=== PATIENT | male | born 1975 | race Caucasian/White ===

== ENCOUNTER 2019-03-29 09:14 | Outpatient (REF) | payer SELFPAY ==
[2019-03-29 20:44] LABS: Anion Gap 10.4 mmol/L (3-11); BUN 16 mg/dL (7-18); CO2 24.6 mmol/L (21.0-32.0); CREATININE 0.67 mg/dL (0.70-1.30); Calcium 8.9 mg/dL (8.5-10.1); Calculated LDL 131 mg/dL; Chloride 106 mmol/L (98-107); Cholesterol 190 mg/dL (50-200); Glucose 97 mg/dL (70-100); HDL Cholesterol 46 mg/dL (40-60); Potassium 4.1 mmol/L (3.5-5.1); Sodium 141 mmol/L (136-145); TSH (W/Ref FT4) 0.66 uIU/mL (0.358-3.74); Triglyceride 68 mg/dL (30-150)
== END 2019-03-29 09:34 ==
LOC: NCHCN 09:14
PROVIDERS: PCP Specialist/Technologist Athletic Trainer; Visit Provider Specialist/Technologist Athletic Trainer
DX: Z00.00 Encounter for general adult medical examination without abnormal findings (principal); Z13.29 Encounter for screening for other suspected endocrine disorder; Z13.220 Encounter for screening for lipoid disorders; Z13.228 Encounter for screening for other metabolic disorders
CPT/HCPCS: 80048; 80061; 83721; 84443

== ENCOUNTER 2020-07-27 16:51 | Outpatient (REF) | payer OTHER, SELFPAY ==
[2020-07-30 17:40] LABS: Patient Race White; SARS-CoV-2 RNA Undetected (Undetected); SARS-CoV-2 Specimen Source Nasal
== END 2020-07-27 17:11 ==
LOC: NCHCN 16:51
PROVIDERS: PCP Specialist/Technologist Athletic Trainer; Visit Provider Physician Assistant Medical
DX: Z20.828 Contact with and (suspected) exposure to other viral communicable diseases (principal)
CPT/HCPCS: U0003

== ENCOUNTER 2022-06-20 13:23 | Outpatient (REF) | payer BC, SELFPAY ==
[2022-06-20 18:50] LABS: ALT 41 U/L (16-63); AST 18 U/L (15-37); Albumin 4.2 g/dL (3.4-5.0); Alkaline Phosphatase 81 U/L (46-116); Anion Gap 6.5 mmol/L (3-11); BUN 20 mg/dL (7-18); Bilirubin, Total 0.8 mg/dL (0.2-1.0); CO2 28.5 mmol/L (21.0-32.0); CREATININE 0.8 mg/dL (0.70-1.30); Calcium 9.3 mg/dL (8.5-10.1); Chloride 104 mmol/L (98-107); Estimated GFR 110.53 (mL/min/1.73m2); Glucose 88 mg/dL (74-106); Potassium 4.5 mmol/L (3.5-5.1); Sodium 139 mmol/L (136-145); TSH (W/Ref FT4) 0.36 uIU/mL (0.36-3.74); Total Protein 7.4 g/dL (6.4-8.2)
[2022-06-20 19:22] LABS: Calculated LDL 111 mg/dL (<100); Cholesterol 195 mg/dL (<200); HDL Cholesterol 68 mg/dL (40-60); Triglyceride 83 mg/dL (<150)
[2022-06-21 21:14] LABS: FREE T4 0.96 ng/dL (0.76-1.46)
== END 2022-06-20 13:24 | disposition home or self-care (01) ==
LOC: NCHCN 13:23
PROVIDERS: PCP Specialist/Technologist Athletic Trainer; Visit Provider Nurse Practitioner Family
DX: R94.6 Abnormal results of thyroid function studies (principal); Z00.00 Encounter for general adult medical examination without abnormal findings
CPT/HCPCS: 80053; 80061; 84439; 84443

== ENCOUNTER 2022-07-06 14:36 | Emergency (ER) | payer BC, SELFPAY ==
[2022-07-06] VITALS (30 sets, daily range): BP systolic 112–129; BP diastolic 61–73; PULSE 43–80; RESP 12–22; TEMP 36.8; O2SAT 93–99
--- NOTE | 2022-07-06 14:45 | RT.EKG_ITS ---
APPROVED REPORT Exam: Resting ECG Reason for Exam: CHEST PAIN Patient Location: E HR:71 bpm ECG Measurements Heart Rate 71 AXIS LA 169 P 61 QRSd 93 QRS 57 QT 349 T 47 QTc 379 Conclusion Sinus rhythm...normal P axis, V-rate 60- 99 Probable left atrial enlargement...P >50mS, <-0.10mV V1 Probable lateral infarct, old...Q>35mS, abnormal ST-T, V5-6 I aVL. Sinus. Normal axis. Q waves lateral leads. No STEMI. I have reviewed and interpreted ECG and agree with software generated interpretation.
--- NOTE | 2022-07-06 15:00 | DI.RAD_ITS ---
Exam(s) XR CHEST 2V PA LATERAL EXAM: XR CHEST 2V PA LATERAL CLINICAL HISTORY: chest pain, r/o acute disease TECHNIQUE: 2D digital imaging was performed. COMPARISON: No exams were available for comparison FINDINGS: The heart is not enlarged. The lungs are clear and well expanded. No pleural effusion seen. Mediastin al contours appear intact. IMPRESSION: Normal chest. RADIATION DOSE DELIVERED: Total DLP
--- NOTE | 2022-07-06 15:16 | ED.GENADUL_ITS ---
Discharge Plan Disposition Patient Disposition: HOME Condition: Improving Discharge Details Clinical Impression: Chest pain Primary Care Provider: Latosha Owen ED Provider: Henrietta Oneal Discharge Instructions Instructions: Chest Pain (ED) Additional Instructions: Your blood tests, EKG and imaging today are reassuring and show no evidence of acute concerning findings. An outpatient stress test have been ordered. You will be contacted by the radiology department for scheduling of this test. You have been placed on care management's list to arrange for a follow-up appointment with your primary care doctor within the next week for re-eval uation. Return immediately to the emergency department if you develop any worsening or new concerning symptoms. Discharge Data Discharge Date/Time-TO BE ENTERED AT DEPARTURE: 07/06/22 19:58 Discharge Physician: Henrietta Oneal Medical Decision Making 1500 -- 46-year-old male presents with a 2-hour episode of right cutting the aching chest pain that awoke him from sleep last night and anterior chest tightness throughout the day today. Denies any other associated symptoms. Diagnosed with COVID 3 weeks ago. 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 He states he drank 2 drinks yesterday. EKG notes a rate of 71, sinus, Q waves in lateral leads, no STEMI and nondiagnostic. His vitals are within normal limits. He appears mildly anxious but otherwise nontoxic. His chest is normal to inspection and nontender. He has no lower extremity edema. Differential diagnosis includes GERD, peptic ulcer disease, esophagitis, anxiety, muscle strain. Also consider PE. History and presentation does not appear consistent with ACS or dissection. Will obtain screening labs, D-dimer, chest x-ray and give a dose of IV Pepcid and Toradol and reassess. 1700 --labs and imaging reviewed. White blood cell count 11.55. Potassium 3.4. Troponin negative. Chest x-ray negative. D-dimer needed to be redrawn. Patient reassessed and still complaining of anterior chest tightness. Patient drove himself to the emergency department. Will give a dose of Carafate and GI cocktail. 193 -- repeat troponin negative. Repeat EKG notes a rate of 53, sinus, left ventricular hypertrophy, peaked T waves in anterior leads but no evidence of ischemia. Patient remains pain-free at this time. He has had occasional dips of heart rate into the low 50s but then increases back up to the 70s. Heart rate now 50s to 60s. Patient feels comfortable going home. Disposition decision made weighing the risks and benefits of hospitalization versus outpatient treatment, the risk for further decompensation, and the patient's wishes. An order for an outpatient stress test has been placed. He was placed on care management list to arrange for a follow-up appointment with his primary care doctor for reevaluation this week. Discussed considering obtaining an echocardiogram and follow-up with cardiology if indicated. Usual and customary return precautions given prior to discharge. Medical Records Medical records reviewed: Yes I reviewed the patient's medical records. Imaging Data Radiologic Study: Radiologist's impression: XR CHEST 2V PA ? LATERAL CLINICAL HISTORY:? chest pain, r/o acute disease TECHNIQUE:? 2D digital imaging was performed. COMPARISON:? No exams were available for comparison FINDINGS: The heart is not enlarged. The lungs are clear and well expanded. No pleural effusion seen. Mediastinal contours appear intact. IMPRESSION: Normal chest. Lab Data Lab results reviewed: Yes I reviewed the patient's lab results. Labs: Laboratory Tests Range/Units 07/06/22 07/06/22 07/06/22 15:14 15:14 16:50 WBC (4.4-10.8) 10^3/uL 11.55 H RBC (4.36-5.78) 10^6/uL 4.85 Hgb (13.5-17.5) g/dL 14.8 Hct (40.0-50.0) % 43.9 MCV (80-95) fL 91 MCH (27.0-33.0) pg 30.5 MCHC (32.0-36.0) % 33.7 RDW (11.8-14.1) % 12.7 Plt Count (130-400) 10^3/uL 241 MPV (8.0-11.0) fL 11.6 H Immature Gran % 0.3 Neutrophils % 77.4 Lymphocytes % 13.2 Monocytes % 7.1 Eosinophils % 1.7 Basophils % 0.3 Nucleated RBC % (0.0-0.3) % 0.0 Absolute Neutrophils (1.2-6.7) 10^3/uL 8.94 H Absolute Lymphocytes (1.2-3.4) 10^3/uL 1.52 Absolute Monocytes (0.1-0.8) 10^3/uL 0.82 H Absolute Eosinophils (0.0-0.7) 10^3/uL 0.20 Absolute Basophils (0.0-0.2) 10^3/uL 0.03 D-Dimer (<500) ng/mlFEU 336 Sodium (136-145) mmol/L 140 Potassium (3.5-5.1) mmol/L 3.4 L Chloride (98-107) mmol/L 105 Carbon Dioxide (21.0-32.0) mmol/L 28.2 Anion Gap (3-11) mmol/L 6.8 BUN (7-18) mg/dL 14 Creatinine (0.70-1.30) mg/dL 0.8 Est GFR (CKD-EPI 2020) (mL/min/1.73m2) 110.53 Glucose (74-106) mg/dL 111 H Calcium (8.5-10.1) mg/dL 9.1 Magnesium (1.8-2.4) mg/dL 1.9 Total Bilirubin (0.2-1.0) mg/dL 0.4 AST (15-37) U/L 16 ALT (16-63) U/L 29 Alkaline Phosphatase (46-116) U/L 98 Troponin I (<or=60) ng/L < 50 Total Protein (6.4-8.2) g/dL 6.9 Albumin (3.4-5.0) g/dL 3.9 Range/Units 07/06/22 17:45 WBC (4.4-10.8) 10^3/uL RBC (4.36-5.78) 10^6/uL Hgb (13.5-17.5) g/dL Hct (40.0-50.0) % MCV (80-95) fL MCH (27.0-33.0) pg MCHC (32.0-36.0) % RDW (11.8-14.1) % Plt Count (130-400) 10^3/uL MPV (8.0-11.0) fL Immature Gran % Neutrophils % Lymphocytes % Monocytes % Eosinophils % Basophils % Nucleated RBC % (0.0-0.3) % Absolute Neutrophils (1.2-6.7) 10^3/uL Absolute Lymphocytes (1.2-3.4) 10^3/uL Absolute Monocytes (0.1-0.8) 10^3/uL Absolute Eosinophils (0.0-0.7) 10^3/uL Absolute Basophils (0.0-0.2) 10^3/uL D-Dimer (<500) ng/mlFEU Sodium (136-145) mmol/L Potassium (3.5-5.1) mmol/L Chloride (98-107) mmol/L Carbon Dioxide (21.0-32.0) mmol/L Anion Gap (3-11) mmol/L BUN (7-18) mg/dL Creatinine (0.70-1.30) mg/dL Est GFR (CKD-EPI 2020) (mL/min/1.73m2) Glucose (74-106) mg/dL Calcium (8.5-10.1) mg/dL Magnesium (1.8-2.4) mg/dL Total Bilirubin (0.2-1.0) mg/dL AST (15-37) U/L ALT (16-63) U/L Alkaline Phosphatase (46-116) U/L Troponin I (<or=60) ng/L < 50 Total Protein (6.4-8.2) g/dL Albumin (3.4-5.0) g/dL ECG Data Attestation: I personally reviewed and interpreted this ECG (s) as follows: Interpretation: #1 -- Rate of 71, sinus, normal axis, Q waves in V4 through V6. No old EKG to compare. No STEMI. #2 -- Rate of 53, sinus, normal axis, peaked T waves in anterolateral leads, LVH, no signs of ischemia or stemi. HPI General Mode of arrival: ambulatory . Date/Time Provider Initiated Documentation: 07/06/22 14:48 . Limitations to Documentation: no limitations . Information obtained by: patient . HPI Narrative: Patient is a 46-year-old male who presents with a 2-hour episode of right-sided aching chest pain that awoke him from sleep last night and then chest tightness anteriorly throughout the day today. Patient states he felt fine when he went to bed last night. He states he awoke at 2 AM with right-sided deep aching chest pain which lasted 2 hours and then resolved on its own. He states he was able to sleep and then awoke this morning and noticed anterior chest tightness. He states the pain is occasionally worse with deep breaths. He states he has been able to eat normally and denies any fever, cough, vomiting, shortness of breath, or dizziness. He denies any injury. 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 He states he drinks between 1 and 4 alcoholic drinks daily. He drank 2 alcoholic drinks yesterday. He states his father had 2 surgeries for cardiac bypass but was a heavy smoker. Patient states he had COVID last year and contracted it again 3 weeks ago. He states his symptoms a few weeks ago were mainly low-grade fever and mild headache which she feels completely resolved. Related Data Allergies Allergy/AdvReac Type Severity Reaction Status Date / Time No Known Allergies Allergy Unverified 07/06/22 14:42 General Stated Complaint: Chest Pain SAVANNA: 2 Review of Systems All systems reviewed & are unremarkable except as noted in HPI and below Constitutional Constitutional: Reports as per HPI, Denies chills and Denies fever(s) Eyes Eyes: Denies blurry vision ENT Ears, Nose, Mouth, and Throat: Denies dizziness, Denies sore throat and Denies throat swelling Cardiovascular Cardiovascular: Reports chest pain and Denies dyspnea Respiratory Respiratory: Denies cough and Denies dyspnea Gastrointestinal Gastrointestinal: Denies abdominal pain, Denies diarrhea and Denies vomiting Genitourinary Genitourinary: Denies hematuria and Denies dysuria Musculoskeletal Musculoskeletal: Denies back pain and Denies numbness Integumentary/Breasts Skin/Breast: Denies lesions and Denies rash Neurologic Neurologic: Denies dizziness, Denies localized weakness and Denies numbness Allergic/Immunologic Allergic/Immunologic: Denies throat swelling PFSH All Active Problems (Updated 07/06/22 @ 19:47 by Henrietta Oneal DO) Chest pain (Acute) Medical History (Updated 07/06/22 @ 19:47 by Henrietta Oneal DO) No significant past medical history Surgical History (Updated 07/06/22 @ 15:18 by Henrietta Oneal DO) No significant past surgical history Social History Smoking/Tobacco Use Status: Former Tobacco Use Smoking risk assessment performed?: Yes Alcohol Intake: current Alcohol Intake frequency: 0-2 drinks per day Alcohol type: beer Drug use: Never Substance use type: does not use Do you feel safe at home: Yes Do you feel safe in your relationship?: Yes Exam Const General: cooperative, no acute distress and anxious Orientation: alert, awake and oriented x3 HENMT Head: normal to inspection Face and sinus: normal facial exam Eyes General: appearance normal, both eyes and all related structures EOM: EOM intact bilaterally Neck Neck: normal visual inspection and No submandibular swelling Lymphatic: no lymphadenopathy noted Chest Chest: normal inspection of the chest, normal palpation of entire chest wall and no tenderness Resp Effort & Inspection: normal respiratory effort and able to speak in complete sentences Auscultation: clear to auscultation bilaterally Cardio Rate: regular rate Rhythm: regular rhythm GI Inspection: normal to inspection Palpation: soft, not firm, not rigid and nontender Auscultation: normal bowel sounds Back/Spine/Pelvis Thoracic/Lumbar Spine: thoracic and lumbar spine normal to inspection Pelvis: no pain with anterior-posterior compression Skin General skin exam: no rashes or lesions noted Neuro General: patient alert, patient awake and patient oriented x3 Cognition: normal cognition Speech: speech normal Motor: muscle tone normal throughout Sensory Exam: no sensory deficits noted Extrem General: normal to inspection, full ROM, capillary refill normal, no calf tenderness bilaterally and no edema Psych Appearance: grossly normal Mental Status: mental status grossly normal Speech and Movement: speech and movement normal Affect: normal affect Course Vital Signs Vital signs: Vital Signs Temperature 98.3 F 07/06/22 14:39 Pulse 80 07/06/22 14:39 Respiratory Rate 17 07/06/22 14:39 Blood Pressure 129/68 07/06/22 14:39 Pulse Oximetry 99 07/06/22 14:39 Temperature 98.3 F 07/06/22 14:39 Temperature Source Oral 07/06/22 14:39 Pulse 80 07/06/22 14:39 Respiratory Rate 17 07/06/22 14:39 Respiratory Effort 07/06/22 14:48 Respiratory Depth Normal 07/06/22 14:48 Respiratory Pattern Normal 07/06/22 14:48 Blood Pressure 129/68 07/06/22 14:39 Blood Pressure Position Sitting 07/06/22 14:39 Pulse Oximetry 99 07/06/22 14:39 Oxygen Delivery Method Room Air 07/06/22 14:39 Oxygen Flow Rate 0 07/06/22 14:39 Pain Level 2 07/06/22 14:39
[2022-07-06 15:27] LABS: Abs Immature Grans 0.04 10^3/uL (0.0-0.06); Absolute Basophil Count 0.03 10^3/uL (0.0-0.2); Absolute Lymphocyte Count 1.52 10^3/uL (1.2-3.4); Absolute Monocyte Count 0.82 10^3/uL (0.1-0.8); Absolute Neutrophil Count 8.94 10^3/uL (1.2-6.7); Basophils % 0.3; Eosinophils % 1.7; HCT 43.9 % (40.0-50.0); HGB 14.8 g/dL (13.5-17.5); Immature Grans % 0.3; Lymphocytes % 13.2; MCH 30.5 pg (27.0-33.0); MCHC 33.7 % (32.0-36.0); MCV 91 fL (80-95); MPV 11.6 fL (8.0-11.0); Monocytes % 7.1; Neutrophils % 77.4; Platelet Count 241 10^3/uL (130-400); RBC 4.85 10^6/uL (4.36-5.78); RDW 12.7 % (11.8-14.1); RDW-SD 41.6 fL; WBC 11.55 10^3/uL (4.4-10.8)
[2022-07-06 15:48] LABS: ALT 29 U/L (16-63); AST 16 U/L (15-37); Albumin 3.9 g/dL (3.4-5.0); Alkaline Phosphatase 98 U/L (46-116); Anion Gap 6.8 mmol/L (3-11); BUN 14 mg/dL (7-18); Bilirubin, Total 0.4 mg/dL (0.2-1.0); CO2 28.2 mmol/L (21.0-32.0); CREATININE 0.8 mg/dL (0.70-1.30); Calcium 9.1 mg/dL (8.5-10.1); Chloride 105 mmol/L (98-107); Estimated GFR 110.53 (mL/min/1.73m2); Glucose 111 mg/dL (74-106); Magnesium 1.9 mg/dL (1.8-2.4); Potassium 3.4 mmol/L (3.5-5.1); Sodium 140 mmol/L (136-145); Total Protein 6.9 g/dL (6.4-8.2)
[2022-07-06 15:51] LABS: Troponin I < 50 ng/L (<or=60)
[2022-07-06] MEDS: Ketorolac 30 MG/ML VIAL IVP (16:22)
[2022-07-06] MEDS: Famotidine 20 MG/2 ML VIAL IVP (16:22)
[2022-07-06] MEDS: Sucralfate 1 GM TAB PO (17:14)
[2022-07-06 17:34] LABS: D-Dimer 336 ng/mlFEU (<500)
--- NOTE | 2022-07-06 18:00 | RT.EKG_ITS ---
APPROVED REPORT Exam: Resting ECG Reason for Exam: chest pain Patient Location: E HR:53 bpm ECG Measurements Heart Rate 53 AXIS MA 187 P 49 QRSd 94 QRS 48 QT 369 T 45 QTc 346 Conclusion Sinus bradycardia...rate< 60 Probable left ventricular hypertrophy...multiple LVH criteria. Sinus. Normal axis. Peaked T waves anterolateral leads. LVH. No STEMI. I have reviewed and interpreted ECG and agree with software generated interpretation.
[2022-07-06 18:17] LABS: Troponin I < 50 ng/L (<or=60)
[2022-07-06 20:16] LABS: Lipase 112 U/L (73-393)
--- NOTE | 2022-07-06 20:24 | NUR.NOTE ---
Referral faxed to [facility] Adam Almeida to f/u this week for chest pain. Requistion for a regular tread mill stress test faxed to [facility], instruction page given to patient.Nursing Note:
== END 2022-07-06 19:58 | disposition home or self-care (01) ==
PROVIDERS: Emergency Provider Physician Assistant; PCP Nurse Practitioner Family
DX: R07.9 Chest pain, unspecified (principal)
CPT/HCPCS: 80053; 83690; 93005; 96374; 99284; 71046; 83735; 84484; 85025; 85379; 93010; 99283; J1885

== ENCOUNTER 2022-07-12 01:51 | Outpatient (CLI) | payer BC, SELFPAY ==
--- NOTE | 2022-07-12 09:00 | ETT_ITS ---
APPROVED REPORT Exam: Exercise Treadmill Patient Location: Out-Patient Room/Bed: Stress Nurse: Renetta Lima RN Ordering Provider:LINDA SCHNEIDER, Contact Number: BMI: 22.95 Baseline Rhythm: Sinus Bradycardia Indications: CHEST PAIN Medical History Medical History: No significant medical history Cardiac Medications: No medications Allergies: No known drug allergies Cardiac Risk Factors: FHX of CAD, Smoking (former) Previous Cardiac Procedures: None Pretest Chest Pain Characteristics: No chest pain Exercise History: Physically active Physical Disabilities: None Lung Sounds: Clear to auscultation Heart Sounds: Regular Stress Test Details Test: Exercise stress testing was performed using a Hernan protocol. Rest Stress HR Resting HR Supine: 56 bpm Max Heart Rate (APMHR): 174 bpm Resting HR Standin bpm Target HR (85% APMHR): 147 bpm Max HR Achieved: 169 bpm % of APMHR: 97 Recovery HR: 86 bpm HR response to stress: Normal HR response to stress BP Resting BP Supine: 120/70 mmHg Resting BP Standin/74 mmHg Max BP: 198/82 mmHg Recovery BP: 120/68 mmHg BP response to stress: Normal blood pressure response to stress. ECG Resting ECG: Sinus Bradycardia Ectopy: None Stress ECG: Sinus Tachycardia ST Change: No significant ST segment changes noted Arrhythmia: None Recovery ECG: Sinus Rhythm Recovery ST Change: No significant ST segment changes noted Recovery Arrhythmia: occasional missed beats Clinical Reason for Termination: Fatigue Stress Symptoms: General Fatigue Exercise duration: 14 min00 sec Highest Stage Reached: Stage 5: 5.0 mph at 18% grade. Exercise capacity: 14.85 METs Jordan Treadmill Score: 13 Rate Pressure Product: [id number] Stress ECG Conclusion 1. The resting electrocardiogram was within normal limits 2. Patient exercised on the Hernan protocol and completed a workload of 14.85 METS, stopping due to fa tigue 3. Normal heart rate and blood pressure response to exercise. Patient achieved 97% of predicted hear t rate for age 4. There was no electrocardiographic evidence of myocardial ischemia 5. There were no significant dysrhythmias Jordan Treadmill Score is 13 which is Low risk. Stress Test Summary STAGE Time (mins) Speed (mph) Grade (%) HR BP SpO2 SYMPTOMS METS Supine 56 120/70 Standing 71 112/74 94 1 3 1.7 10 95 118/70 95 4.5 2 6 2.5 12 104 142/68 95 7 3 9 3.4 14 115 150/72 95 10 4 12 4.2 16 135 180/78 95 13 1 min recovery 128 198/82 94 3 min recovery 74 180/54 95 6 min recovery 86 120/68
== END 2022-07-12 02:11 ==
LOC: DI 01:51
PROVIDERS: PCP Nurse Practitioner Family; Visit Provider Physician Assistant
DX: R07.89 Other chest pain (principal)
CPT/HCPCS: 93017

== ENCOUNTER 2024-01-25 14:32 | Outpatient (REF) | payer BC, SELFPAY ==
[2024-01-25 16:21] LABS: Hemoglobin A1C 5.5 % (<5.7)
[2024-01-25 16:27] LABS: ALT 57 U/L (16-63); AST 25 U/L (15-37); Albumin 4.2 g/dL (3.4-5.0); Alkaline Phosphatase 85 U/L (46-116); Anion Gap 8.6 mmol/L (3-11); BUN 18 mg/dL (7-18); Bilirubin, Total 0.7 mg/dL (0.2-1.0); CO2 28.4 mmol/L (21.0-32.0); CREATININE 0.8 mg/dL (0.70-1.30); Calcium 9.2 mg/dL (8.5-10.1); Calculated LDL 147 mg/dL (<100); Chloride 105 mmol/L (98-107); Cholesterol 222 mg/dL (<200); Estimated GFR 109.17 (mL/min/1.73m2); Glucose 105 mg/dL (74-106); HDL Cholesterol 66 mg/dL (40-60); Potassium 4.7 mmol/L (3.5-5.1); Sodium 142 mmol/L (136-145); Total Protein 7.1 g/dL (6.4-8.2); Triglyceride 45 mg/dL (<150)
[2024-01-25 17:09] LABS: Vitamin D 25 Total 25.3 ng/mL (30-100)
== END 2024-01-25 14:33 | disposition home or self-care (01) ==
LOC: NCHCN 14:32
PROVIDERS: PCP Nurse Practitioner Family; Visit Provider Nurse Practitioner Family
DX: Z00.00 Encounter for general adult medical examination without abnormal findings (principal)
CPT/HCPCS: 80053; 80061; 82306; 83036

== ENCOUNTER 2024-10-03 02:45 | Outpatient (CLI) | payer OTHER, SELFPAY ==
--- NOTE | 2024-10-03 06:15 | DI.RAD_ITS ---
Exam(s) XR FOOT RT COMPLETE EXAM: XR FOOT RT COMPLETE CLINICAL HISTORY: Right foot/toe pain,[id number]. TECHNIQUE: 2D digital imaging was performed. COMPARISON: No exams were available for comparison FINDINGS: 3 views There is no evidence of acute fracture or diastasis of the Lisfranc joint. There is moderate-advanced degenerative change in the great toe metatarsophalangeal joint. Other MTP joints appear unremarkable as do the tarsometatarsal joints. No pes planus. No inferior calcaneal spur nor enthesophytes. 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 No other significa nt osseous findings in foot. DATA REPOSITORY: RADIATION DOSE DELIVERED:
== END 2024-10-03 03:05 ==
PROVIDERS: PCP Nurse Practitioner Family; Visit Provider Podiatrist
DX: M79.671 Pain in right foot (principal)
CPT/HCPCS: 73630